=== PATIENT | female | born 1965 | race Hispanic/Latino ===

== ENCOUNTER 2017-03-28 08:22 | Outpatient (CLI) | payer MEDICARE ==
[2017-03-28 09:11] LABS: Blood Urea Nitrogen 11 mg/dL (7-17)
[2017-03-28] MEDS ORDERED: NACL ONE (09:42)
--- NOTE | 2017-03-28 11:18 | Cat Scan Report ---
CT ABDOMEN WITHOUT AND WITH CONTRAST INDICATION: Gastroesophageal reflux without esophagitis. COMPARISON: None similar at this institution. FINDINGS: Abdomen and pelvis CT performed following oral contrast and intravenous administration of 100 cc of Omnipaque 300. Precontrast images also obtained. LUNG BASES: Slight lingular scarring. ABDOMEN: Precontrast images demonstrate cholecystectomy clips. Faint, tiny 1 mm right renal calculus inferiorly possible, axial image 54, series 2. Post contrast images suggest indeterminate 6 mm right hepatic hypodensity inferiorly on axial image 63, series 4, though not seen on the delayed phase. Otherwise unremarkable liver, spleen, pancreas, adrenals, nonaneurysmal abdominal aorta with few atherosclerotic calcifications, IVC and non-hydronephrotic kidneys. Gallbladder surgically absent. Few small, subcentimeter mesenteric and peritoneal lymph nodes. Gastric bypass changes. Opacified small bowel nonobstructive. Nonspecific cecal wall soft tissue prominence as on axial image 104, series 4. Mild stool throughout colon with somewhat exaggerated colonic wall prominence as well, nonspecific. Moderate multilevel spinal degenerative changes, including spurring, a few endplate irregularities and disc degeneration with spurring and neck and phenomena, greatest lower thoracic and lower lumbar. CONCLUSION: 1. Slight nonspecific colonic wall prominence, as described, possibly suboptimal distention versus inflammatory. GI colonoscopy/barium enema correlation may be further helpful, if so warranted. 2. Few other incidental findings, as above. Thank you for the opportunity to participate in this patient's care.
--- NOTE | 2017-03-28 11:36 | XRay Report ---
ABDOMEN RADIOGRAPH INDICATION: Gastroesophageal reflux without esophagitis. COMPARISON: None similar. FINDINGS: Frontal abdominal radiograph obtained as cosmetology teacher for upper GI demonstrates nonobstructive bowel gas pattern. Colonic stool and contrast seen. contrast excretion also noted. Cholecystectomy clips and gastric bypass changes. Multilevel spinal degenerative changes. CONCLUSION: Abdominal contrast, as described. Patient given appropriate instructions and rescheduled for UGI. Thank you for the opportunity to participate in this patient's care.
== END 2017-03-28 08:23 | disposition home or self-care (01) ==
LOC: CT 08:22
PROVIDERS: ATTEND Specialist
DX: K21.9 Gastro-esophageal reflux disease without esophagitis (principal); J98.4 Other disorders of lung; N20.0 Calculus of kidney; I70.0 Atherosclerosis of aorta; M47.894 Other spondylosis, thoracic region; M47.896 Other spondylosis, lumbar region; Z90.49 Acquired absence of other specified parts of digestive tract; Z98.890 Other specified postprocedural states
CPT/HCPCS: 36415; 74000; 74170; 82565; 84520; Q9967

== ENCOUNTER 2017-03-31 08:06 | Outpatient (CLI) | payer MEDICARE ==
--- NOTE | 2017-03-31 09:18 | Fluoroscopy Report ---
UGI INDICATION: Gastroesophageal reflux disease. Gastric bypass last year. Lumbar surgery 3 years ago. COMPARISON: None similar. FINDINGS: Upper GI exam performed. Patient swallowed barium without any difficulty and tolerated effervescent granules well. Director Broadcast radiograph demonstrates cholecystectomy clips, nonobstructive bowel gas pattern, gastric bypass changes and multilevel spinal degenerative spurring. Esophagus is normal in course and caliber. Normal peristalsis and mucosal pattern, to the extent assessed. No large hiatal hernia or demonstrable gastroesophageal reflux. Gastric bypass with prompt contrast passage further distal into small bowel noted. CONCLUSION: Normal upper GI exam in this patient with gastric bypass, as described. Thank you for the opportunity to participate in this patient's care.
== END 2017-03-31 08:07 | disposition home or self-care (01) ==
LOC: FLUORO 08:06
PROVIDERS: ATTEND Surgery
DX: K21.9 Gastro-esophageal reflux disease without esophagitis (principal); Z90.49 Acquired absence of other specified parts of digestive tract; Z98.890 Other specified postprocedural states
CPT/HCPCS: 74247

== ENCOUNTER 2017-04-24 05:46 | Day surgery (SDC) | payer MEDICARE ==
[2017-04-24] MEDS ORDERED: NACL 0.9% 1000 ML 1,000 ML IV SCH (07:00)
[2017-04-24] MEDS ORDERED: WATER FOR IRRIG STERILE IR ONE (07:17)
--- NOTE | 2017-04-24 07:30 | Anesthesia Day of Surgery ---
Anesthesia Day of Surgery - Day of Surgery Patient Examined: Yes Patient H&P Reviewed: Yes Patient is NPO: Yes
--- NOTE | 2017-04-24 07:32 | Anesthesia Consultation ---
Anesthesia Consult and Med Hx Date of service: 04/24/17 - Airway Anesthetic Teeth Evaluation: Good (chipped front, upper tooth) ROM Head & Neck: Adequate Mental/Hyoid Distance: Adequate Mallampati Class: Class II Intubation Access Assessment: Probably Good - Pulmonary Exam CTA: Yes - Cardiac Exam Cardiac Exam: RRR - Pre-Operative Health Status ASA Pre-Surgery Classification: ASA3 Proposed Anesthetic Plan: MAC - Pulmonary Hx Smoking: Yes Hx Sleep Apnea: Yes (uses CPAP) - Cardiovascular System Hx Hypertension: Yes - Central Nervous System Hx Back Pain: Yes (DJD) Hx Psychiatric Problems: Yes (Anxiety/Depression) - Gastrointestinal Hx Gastroesophageal Reflux Disease: Yes - Other Systems Hx Cancer: Yes
[2017-04-24] MEDS ORDERED: DIPRIVAN 10 MG/ML IV ONE (07:36)
--- NOTE | 2017-04-24 07:52 | Discharge Summary ---
Providers - Providers Date of discharge: 04/24/17 Attending physician: TOMAS QUINONEZ Primary care physician: CORI VILLANUEVA Hospitalization Condition: Good Procedures: egd Disposition: DC- TO HOME OR SELFCARE Core Measure Documentation - Palliative Care Palliative Care/ Comfort Measures: Not Applicable - Core Measures Any of the following diagnoses?: none Exam - Physical Exam Narrative exam: unchaged from pre-op exam - Constitutional Vitals: Temp Pulse Resp BP Pulse Ox 97.5 F L 63 17 156/81 99 04/24/17 06:59 04/24/17 06:59 04/24/17 06:59 04/24/17 06:59 04/24/17 06:59 Plan Activity: no restrictions Weight Bearing Status: Full Weight Bearing Diet: regular Follow up with: CORI VILLANUEVA MD [Primary Care Provider] - 7 Days
--- NOTE | 2017-04-24 08:27 | Post Anesthesia Evaluation ---
- Post Anesthesia Evaluation Patient Participated: Yes Airway Patent: Yes Stable Respiratory Function: Yes Temp > 96.8F: Yes Pain Manageable: Yes Adequeate Hydration: Yes Anesthesia Complications: No
[2017-04-24 08:48] VITALS: BP 161/91
--- NOTE | 2017-04-24 10:06 | Operative Report ---
Operative Report Operative Report: EGD Post bypass DATE: 04/24/17 OPERATIVE REPORT - EGD PREOP DIAGNOSIS: epigatric pain POSTOP DIAGNOSIS: same SURGERY: 1. EGD, 2. biopsy of gastric pouch mucosa SURGEON: Saman Casey M.D. DEV OPS ENGINEER: n/a TYPE OF ANESTHESIA: MAC. ESTIMATED BLOOD LOSS: None. COMPLICATIONS: None. SPECIMENS REMOVED: gastric pouch muscosa bx FINDINGS: 1. normal esophagus 2. gastric pouch - 40ml 3. gastrojejunal anastomosis is 15mm INDICATIONS:INDICATION FOR PROCEDURE: Patient is a 52-year-old female s/p gastric bypass in. She has been complaining of epigastric pain for months and says that pain is worse when she eats. She admits to taking diclofenac on a regular basis, and also has a recent hx of smoking. PROCEDURE DETAILS: After consent was reviewed, patient was taken back to the operating room where patient was placed in the left lateral decubitus position and a bite block was placed in the mouth. After a time-out was called, MAC anesthesia was initiated. I then passed the endoscope into the patients oropharynx, into the esophagus, visualized the entire esophagus, which was all within normal limits. I then visualized the gastric pouch which was normal and about 40ml in size. The gastrojejunal anastomosis was normal at about 15mm. The proximal portion of the mateo limb was normal. No masses, ulcers, or legions were appreciated. A bx of the gastric pouch was taken with a cold biopsy forceps and the specimen sent off to test for H. pylori. I then desufflated the gastric pouch and removed the endoscope. Patient tolerated procedure well and was transferred to recovery room in good and stable condition.
== END 2017-04-24 05:47 | disposition home or self-care (01) ==
LOC: GIO 05:46
PROVIDERS: ATTEND Surgery
DX: R10.13 Epigastric pain (principal); I10 Essential (primary) hypertension; G47.33 Obstructive sleep apnea (adult) (pediatric); K21.9 Gastro-esophageal reflux disease without esophagitis; F17.210 Nicotine dependence, cigarettes, uncomplicated; F31.9 Bipolar disorder, unspecified; F41.9 Anxiety disorder, unspecified; E66.01 Morbid (severe) obesity due to excess calories; Z68.27 Body mass index [BMI] 27.0-27.9, adult; Z98.84 Bariatric surgery status; Z79.899 Other long term (current) drug therapy; Z86.718 Personal history of other venous thrombosis and embolism; Z90.49 Acquired absence of other specified parts of digestive tract; Z98.890 Other specified postprocedural states
CPT/HCPCS: 43239; 88305; 88342; J2704; J7030